=== PATIENT | male | born 1965 | race Caucasian/White ===

== ENCOUNTER 2020-09-22 18:22 | Emergency (ER) | payer SELFPAY ==
[~2020-09-22] VITALS: Ht 180 cm; Wt 90.7 kg
[2020-09-22] MEDS ORDERED: LIDOCAINE 1% INJ 20 ML 20 ML VIAL ONE (18:23)
[2020-09-22] MEDS ORDERED: LIDOCAINE/EPI 2% 1:100,00 (XYLOCAINE) 20 ML VIAL INJ STA (18:30)
--- NOTE | 2020-09-22 18:34 | ED Lower Extremity ---
General Chief Complaint: Laceration Stated Complaint: LT LWR LIMB LAC Nursing Triage Note: Patient reports he was taking out some trash with a broken lamp in the back, states the back hit his right leg and caused a large laceration. Nursing Sepsis Screen: No Definite Risk Source: patient History of Present Illness Date Seen by Provider: Sep 22, 2020 Time Seen by Provider: 18:26 Initial Comments 55-year-old male presenting with laceration to the right lateral calf. He states that while cleaning at home a lampshade had been broken. As he was trying to take the broken glass lampshade to the trash it tore through the trash bag and cut into his leg. He did not have a lot of pain with this but did have a lot of bleeding. He denies any numbness or tingling down his leg. He thinks his last tetanus booster was well over 5 years ago. Bleeding is controlled by the time he arrived here in the ED by holding pressure. Allergies and Home Medications Allergies Coded Allergies: sulfamethoxazole (Verified Allergy, Unknown, 09/22/20) trimethoprim (Verified Allergy, Unknown, 09/22/20) Home Medications Amoxicillin/Potassium Clav 1 Each Tablet, 1 EACH PO BID Prescribed by: ZACH MCMILLAN on 09/22/202023 Patient Home Medication List Home Medication List Reviewed: Yes Review of Systems Constitutional: No chills, No dizziness, No fever EENTM: no symptoms reported Respiratory: no symptoms reported Cardiovascular: no symptoms reported Gastrointestinal: no symptoms reported Genitourinary: no symptoms reported Musculoskeletal: see HPI Skin: see HPI Psychiatric/Neurological: See HPI; Denies Numbness, Denies Paresthesia Past Gawhxdv-Iujufl-Oawzjj Hx Past Med/Social Hx: Reviewed Nursing Past Med/Soc Hx Patient Social History Recent Infectious Disease Expo: No Physical Exam Vital Signs Vital Signs - First Documented 09/22/20 18:25 Temp 36.0 Pulse 79 Resp 16 B/P (MAP) 144/82 (102) Pulse Ox 97 O2 Delivery Room Air Capillary Refill : Less Than 3 Seconds Height, Weight, BMI Height: '" Weight: lbs. oz. kg; 27.00 BMI Method: General Appearance: WD/WN, no apparent distress HEENT: PERRL/EOMI, pharynx normal Cardiovascular: normal peripheral pulses, regular rate, rhythm Respiratory: chest non-tender, lungs clear Legs: right leg soft tissue tenderness (Mild tenderness with palpation of the laceration), right leg other (6.5 cm gaping laceration to lateral calf. This e xtends down into the muscle. 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 nml as tested, no motor/sensory deficits, alert, normal mood/affect, oriented x 3 Skin: normal color, warm/dry, other (6.5 cm laceration to the right lateral calf) Procedures/Interventions Wound Location: Lower Extremities (right lateral calf) Wound Length (cm): 6.5 Wound's Depth, Shape: into muscle, linear, sub Q Wound Explored: clean Anesthesia: Lidocaine w/ Epi (2%) Volume Anesthetic (ccs): 20 Suture: Ethlion Suture Size: 4-0 Number of Sutures: 14 Layer Closure?: 2 Number Deep Layer Sutures: 3 Sterile Dressing Applied?: Yes Progress After obtaining verbal informed consent from the patient the wound was cleaned some with chlorhexidine and sterile water. Then using 2% lidocaine with epinep hrine a total of 20 mL were infiltrated to anesthetize the wound. Then the wound was scrubbed with chlorhexidine soap and sterile water. No foreign bodies were seen or visualized or palpated. The wound did extend down into the muscle and the fascia was visualized. After scrubbing with 250 mL of sterile water and chlorhexidine surgical soap the wound was draped with sterile surgical drapes. A fascial layer was approximated with 3 interrupted stitches of 4-0 Polysorb. Then the skin and subcutaneous layer was brought together using 4-0 Ethilon with a total of 14 simple interrupted stitches. The wound edges were well approximated. Patient tolerated the procedure well without any immediate complication. A sterile dressing with antibiotic ointment was applied and a pressure dressing with an Ricardo bandage was applied to help with oozing and bleeding. Patient was counseled to have the stitches removed in 10 to 14 days. Counseled on follow-up and return precautions. Progress/Results/Core Measures Results/Orders My Orders Orders - ZACH MCMILLAN MD Lidocaine 1% Inj 20 Ml (Xylocaine 1% Inj (09/22/20 18:23) Lidocaine/Epi 2% 1:100,000 (Xylocaine/Ep (09/22/20 18:30) Suture Set At Bedside (09/22/20 18:30) Dipht,Pertuss(Acell),Tet Adult (Boostrix (09/22/20 19:00) Amoxicillin/Clavulanate Tablet (Augmenti (09/22/20 20:21) Medications Given in ED Current Medications Medications Dose Ordered Sig/Jf Route Start Time Stop Time Status Last Admin Dose Admin Diphtheria/ Tetanus/Acell Pertussis 0.5 ml ONCE ONCE IM 09/22/20 19:00 09/22/20 19:01 DC 09/22/20 20:42 0.5 ML Vital Signs/I&O 09/22/20 09/22/20 18:25 20:50 Temp 36.0 36.0 Pulse 79 79 Resp 16 16 B/P (MAP) 144/82 (102) 144/82 (102) Pulse Ox 97 97 O2 Delivery Room Air Blood Pressure Mean: 102 Progress Progress Note #1: Progress Note Patient verbally consented for cleaning and repairing laceration of the right lateral calf. Will update his tetanus booster as well as place him on a course of antibiotics since this did cut down into the muscle. Will require at least 2 layer closure. Progress Note #2: Progress Note Patient had a total of 3 subcutaneous sutures to approximate the edges of the fascia and muscle placed with 4-0 Polysorb. He also had 14 simple interrupted stitches of 4-0 Ethilon placed in the skin to approximate the skin edges. Overall he tolerated the procedure well without any immediate complications. Counseled that he will have bleeding infusing into the skin and tissues. He will expect to have bruising and bleeding that will settle down his leg. Advised to use compression, ice, elevation to help minimize this. Treat with Augmentin for 10 days to help try to do minimize and prevent risk of infection since the wound did get down into the muscle. No foreign bodies were visualized or seen on scrubbing of the wound. Counseled to have stitches removed in 10 to 14 days. Counseled on follow-up and return precautions. Departure Impression Primary Impression: Laceration of right calf Disposition: HOME, SELF-CARE Condition: Stable Departure-Patient Inst. Decision time for Depature: 20:25 Referrals: PIYUSH FALK MD (PCP/Family) Primary Care Physician Patient Instructions: Laceration Repair With Stitches ED Add. Discharge Instructions: Keep the wound clean and dry for 24 hours. If the dressing soaks through then you could change it early. After 24 hours you may wash the wound with soap and water like normal but do not soak it in water. May reapply antibiotic ointment 2-3 times a day and a new dressing with pressure to help with swelling and bruising for the next few days. Continue to cover the wound if it is going to be rubbing on clothing or might get dirty. Return or seek medical care if you see increasing redness streaking up your leg, fever over 101 F, or pus draining from the wound. Ice 20-30 minutes every few hours while awake in the first 2-3 days to help with bruising and swelling. Elevate your leg above waist level as much as possible in the first few days to help limit bruising and swelling. Stitches may come out in 10 to 14 days with your primary provider or return here to ED. There WILL be bruising that settles down your leg to your ankle and foot and the more you ice, elevate, and rest your leg in the first 2-3 days the less bruising and swelling your will have. All discharge instructions reviewed with patient and/or family. Voiced understanding. Scripts Amoxicillin/Potassium Clav (Augmentin 875-125 Tablet) 1 Each Tablet 1 EACH PO BID for 10 Days, #20 TAB 0 Refills Prov: ZACH MCMILLAN MD 09/22/20 Images Extremities-Lower 1 - Laceration (6.5 cm laceration right lateral calf that extended down to the muscle), Tenderness (Mild tenderness to palpation) ZACH MCMILLAN MD Sep 22, 2020 18:34
[2020-09-22] MEDS ORDERED: TETANUS,DIPTH,PERTUSS P/F (BOOSTRIX) 0.5 ML VIAL IM ONE (19:00)
[2020-09-22] MEDS ORDERED: AUGMENTIN 875 MG TAB (AMOXICILLIN/CLAVULANATE) PO STA (20:21)
[2020-09-22] MEDS ORDERED: AMOX-358 PO (20:24)
[2020-09-22 20:50] VITALS: BP 144/82
== END 2020-09-22 20:50 | disposition home or self-care (01) ==
LOC: ER FS 18:25
DX: S81.811A Laceration without foreign body, right lower leg, initial encounter (principal); Z88.2 Allergy status to sulfonamides; Z88.1 Allergy status to other antibiotic agents; Z23 Encounter for immunization; W25.XXXA Contact with sharp glass, initial encounter
CPT/HCPCS: 12035; 90715